=== PATIENT | male | born 1990 | race Asian ===

== ENCOUNTER → 2016-06-19 | Outpatient (CLI) | payer OTHER ==
[2016-06-19 16:28] LABS: DAYS OF ABSTINENCE 2; METHOD OF COLLECTION MASTURBATION; SEMEN COLOR GRAY OR GRAY-WHITE (GRY/GRYWHTE); SEMEN TIME OF COLLECTION 1505; TYPE OF SPECIMEN CONTAINER STERILE CUP
[2016-06-19 16:29] LABS: SEMEN VOLUME 1.5 ML (>1.5)
[2016-06-19 16:30] LABS: SPERM VIABILITY STAIN NOT INDICATED % (>58%)
== END | disposition home or self-care (01) ==
LOC: C.LAB 15:34
PROVIDERS: ATTEND Obstetrics & Gynecology
DX: Z31.41 Encounter for fertility testing (principal)